=== PATIENT | female | born 1955 | race Caucasian/White ===

== ENCOUNTER 2017-11-01 02:47 | Emergency (ER) | payer OTHER ==
[~2017-11-01] VITALS: Ht 157.5 cm; Wt 59.0 kg
[~2017-11-01 02:47] MED LIST: CYMBALTA 30 MG30 MG PO; LEVSIN0.125 MG PO; REGLAN10 MG PO; ZOFRAN 4 MG TABL4 MG PO
--- NOTE | 2017-11-01 03:11 | ED GI/GU/ABDOMINAL COMPLAINT ---
History of Present Illness General Chief Complaint: Nausea, Vomiting, Diarrhea Stated Complaint: "N/V" Source: patient, family, old records Exam Limitations: no limitations Vital Signs & Intake/Output Vital Signs & Intake/Output Vital Signs Date Time Temp Pulse Resp B/P B/P Pulse O2 O2 Flow FiO2 Mean Ox Delivery Rate 11/01 0330 98.4 71 18 161/95 11/01 0327 98 Room Air 11/01 0306 98.4 71 18 161/95 97 Room Air Allergies Coded Allergies: No Known Allergies (11/01/17) Reconcile Medications Duloxetine Hydrochloride (Cymbalta) 30 MG CAP 1 CAP PO BID MENTAL HEALTH ( Reported) Hyoscyamine Sulfate (Levsin) 0.125 MG TAB 1-2 TAB PO Q6P PRN ABDOMINAL PAIN Ondansetron (Zofran 4 MG Tablet) 4 MG TAB 1 TAB PO Q8 severe nausea Triage Note: TRIAGE: PATIENT TO ER FROM HOME REPORTING +N/V, HX OF SAME "HERE IN THE PAST FOR THE SAME AND WAS ADMITTED FOR IT AND HAD A TON OF TESTING BUT WE DON'T KNOW THE CAUSE. SEE'S GI MD FOR IT TOO." PER PATIENT "EXTREMELY DEHYDRATED AND ALSO RAN OUT OF MY ANTIDEPRESSANT." PER PATIENT'S SPOUSE, "HER GI IS DR. CASTILLO AND HE SUGGESTED THAT THE NEXT TIME THIS HAPPENS SHE HAVE XRAYS TO SEE IF IT'S A BLOCKAGE." Triage Nurses Notes Reviewed? yes ? N Is pt currently ? No HPI: Patient presents with nausea vomiting since Tuesday. Patient has been unable to keep anything down. No diarrhea. She is also getting diffuse abdominal cramps. There is no radiation. There are no aggravating or mitigating factors. No fevers or chills. Patient has had some symptoms multiple times in the past and sees a appraiser personal property out of [place]. Patient was told by her doctor that she needs x-rays And this happens to make sure she doesn't have a blockage. Of note the patient also ran out of Suboxone on Tuesday. Patient does not have an appointment until later this week. Patient states that she had taken extra Suboxone and now ran out early. Past History Travel History Traveled to [place] past 21 day No Medical History Any Pertinent Medical History? see below for history Neurological: NONE EENT: NONE Cardiovascular: NONE Respiratory: NONE Gastrointestinal: "CHRONIC NAUSEA" Hepatic: NONE Renal: NONE Musculoskeletal: disk herniation, BACK SURGERY Psychiatric: depression Endocrine: NONE Blood Disorders: NONE Cancer(s): colon/rectal cancer ELIGIBILITY CLERK/Reproductive: NONE, BILATERAL OOPHRECTOMY History of MRSA: No History of VRE: No History of CDIFF: No Influenza Vaccine: 02/24/15 Tetanus Vaccine: 07/24/09 Surgical History Surgical History: PRIOR COLECTOMY Psychosocial History Who do you live with Spouse What is your primary language Libyan Tobacco Use: Current Daily Use Daily Tobacco Use Amount/Type: => 5 Cigarettes daily ETOH Use: denies use Illicit Drug Use: denies illicit drug use Family History Hx Contributory? No Review of Systems Review of Systems Constitutional: Reports: no symptoms. EENTM: Reports: no symptoms. Respiratory: Reports: no symptoms. Cardiovascular: Reports: no symptoms. GI: Reports: see HPI, abdominal pain, nausea, vomiting. Genitourinary: Reports: no symptoms. Musculoskeletal: Reports: no symptoms. Skin: Reports: no symptoms. Neurological/Psychological: Reports: no symptoms. Hematologic/Endocrine: Reports: no symptoms. Immunologic/Allergic: Reports: no symptoms. All Other Systems: Reviewed and Negative Physical Exam Physical Exam General Appearance: well developed/nourished, alert, awake, moderate distress Head: atraumatic, normal appearance Eyes: Bilateral: PERRL, EOMI. Ears, Nose, Throat, Mouth: hearing grossly normal, DRY MUCOSA Neck: normal inspection, supple, full range of motion Respiratory: normal breath sounds, chest non-tender, no respiratory distress, lungs clear Cardiovascular: regular rate/rhythm, normal peripheral pulses Gastrointestinal: normal bowel sounds, soft, non-tender, no organomegaly Back: normal inspection, normal range of motion Extremities: normal range of motion Neurologic/Psych: no motor/sensory deficits, awake, alert, oriented x 3, normal gait Skin: intact, normal color, warm/dry Core Measures ACS in differential dx? No Sepsis Present: No Sepsis Focused Exam Completed? No Progress Differential Diagnosis: appendicitis, biliary colic, bowel obstruction, cholecystitis, ischemic bowel, inflamm bowel dis, SBO Plan of Care: Orders Procedure Date/time Status URINALYSIS 11/01 310 Active TROPONIN LEVEL 11/01 310 Complete COMPREHENSIVE METABOLIC PANEL 11/01 310 Complete CBC WITHOUT DIFFERENTIAL 11/01 310 Complete EKG 11/01 310 Active Laboratory Tests 11/01/17 0400: Anion Gap 14, Estimated GFR > 60, BUN/Creatinine Ratio 40.0 H, Glucose 143 H, Calcium 9.9, Total Bilirubin 0.7, AST 20, ALT 29, Alkaline Phosphatase 68, Troponin I < 0.01, Total Protein 7.0, Albumin 4.4, Globulin 2.6, Albumin/ Globulin Ratio 1.7 11/01/17 0325: CBC w Diff MAN DIFF ORDERED, RBC 4.97, MCV 90.0, MCH 30.7, MCHC 34.0, RDW 14.9 H, MPV 9.5, Gran % 89.0 H, Lymphocytes % 8.5 L, Monocytes % 2.5, Eosinophils % 0, Basophils % 0, Absolute Granulocytes 8.5 H, Segmented Neutrophils 88 H, Absolute Lymphocytes 0.8 L, Lymphocytes 9 L, Monocytes 2, Absolute Monocytes 0.2, Absolute Eosinophils 0, Basophils 1, Absolute Basophils 0, Platelet Estimate ADEQUATE, Polychromasia 1+, Poikilocytosis 1+, Ovalocytes 1+, Fld Total RBCs Counted 100 Diagnostic Imaging: Viewed by Me: CT Scan. Discussed w/RAD: CT Scan. Radiology Impression: PATIENT: AKOSUA GALVAN PRESENT AGE: 62 PATIENT ACCOUNT NO: [id number] : 54 LOCATION: [facility] ORDERING PHYSICIAN: Mekhi Pace MD SERVICE DATE: 11/01/17 EXAM TYPE: CAT - CT ABD & PELVIS W IV CONTRAST EXAMINATION: CT ABDOMEN AND PELVIS WITH CONTRAST CLINICAL INFORMATION: Nausea and vomiting COMPARISON: CT 03/06/2015 TECHNIQUE: Multidetector volumetric imaging was performed of the abdomen and pelvis following IV administration of 95 mL of Optiray 320 intravenous contrast. Sagittal and coronal reformatted images were obtained on the technologist's workstation. DLP: 296 mGy-cm FINDINGS: LUNG BASES: Minimal bibasilar atelectasis. The visualized cardiac structures are unremarkable. LIVER, GALLBLADDER, AND BILIARY TREE: The liver is normal in size, shape, and attenuation. No focal hepatic lesion or biliary ductal dilatation is present. The gallbladder is unremarkable with no evidence of radiopaque gallstones, gallbladder wall thickening, or obvious pericholecystic inflammatory changes. PANCREAS: Unremarkable. SPLEEN: Unremarkable. ADRENAL GLANDS: Unremarkable. KIDNEYS AND URETERS: The kidneys are normal in size, shape, and attenuation. No hydronephrosis, hydroureter, or calculi seen. No perinephric stranding. 1 cm left lower pole renal cyst. BLADDER: Unremarkable. GASTROINTESTINAL TRACT: The stomach is unremarkable. The small bowel is normal in caliber. No obstruction. No colonic wall thickening or inflammatory change. There is colonic diverticulosis without diverticulitis. No free air or free fluid. ABDOMINAL WALL : No significant hernia is appreciated. LYMPH NODES: Normal. VASCULAR: Unremarkable. PELVIC VISCERA: Unremarkable. OSSEOUS STRUCTURES: No acute or suspicious osseous abnormality. Fusion hardware from L3 to L5. Vacuum disc phenomenon at L5-S1. IMPRESSION: No acute findings of the abdomen or pelvis. No obstruction. Colonic diverticulosis without diverticulitis. No inflammatory changes. DICTATED BY: Carlin Packer MD DATE/TIME DICTATED:11/01/17525 WEBMASTER:COURTNEY DATE/TIME TRANSCRIBED:11/01/17525 CONFIDENTIAL, DO NOT COPY WITHOUT APPROPRIATE AUTHORIZATION. <Electronically signed in Other Vendor System> SIGNED BY: Carlin Packer MD 11/01/1732 Initial ED EKG: NSR, no ST T wave changes Comments: Patient and her have been updated on the lateral CAT scan results. Patient is stable for discharge at this time and will follow-up with her appraiser personal property. Departure Departure Disposition: HOME OR SELF CARE Condition: Stable Clinical Impression Primary Impression: Vomiting Secondary Impressions: Opiate withdrawal Referrals: Tiago SALMON,Adam Chadwick (PCP/Family) Additional Instructions: Follow-up with her appraiser personal property. Take Reglan if needed for the nausea. Take clonidine as needed for withdrawal. Return if symptoms worsen or for any concerns. Departure Forms: Customer Survey General Discharge Information Prescriptions: Current Visit Scripts Metoclopramide HCl (Reglan) 1 TAB PO 4 TIMES/DAY PRN NAUSEA #20 TAB 30 minutes before meals and bedtime PLEASE GIVE THE ODT Clonidine HCl 1 TAB PO Q6P PRN WITHDRAWAL #16 TAB
[2017-11-01 03:36] LABS: ABSOLUTE BASOPHIL COUNT 0 /CUMM (0.0-0.2); ABSOLUTE EOSINOPHIL COUNT 0 /CUMM (0.0-0.7); ABSOLUTE GRANULOCYTE CT 8.5 /CUMM (1.4-6.5); ABSOLUTE LYMPH COUNT 0.8 /CUMM (1.2-3.4); ABSOLUTE MONOCYTE COUNT 0.2 /CUMM (0.10-0.60); BASOPHIL % 0 % (0.0-2.0); EOSINOPHIL % 0 % (0-5); HEMATOCRIT 44.8 % (37-47); MEAN CORPUSCULAR HGB 30.7 PG (27.0-31.0); MEAN PLATELET VOLUME 9.5 FL (7.4-10.4); PLATELET COUNT 310 /CUMM (130-400); RBC DISTRIBUTION WIDTH 14.9 % (11.5-14.5); RED BLOOD CELL CT 4.97 /CUMM (4.20-5.40); WHITE BLOOD CELL COUNT 9.6 /CUMM (4.8-10.8)
--- NOTE | 2017-11-01 05:32 | CT SCAN REPORT ---
EXAMINATION: CT ABDOMEN AND PELVIS WITH CONTRAST CLINICAL INFORMATION: Nausea and vomiting COMPARISON: CT 03/06/2015 TECHNIQUE: Multidetector volumetric imaging was performed of the abdomen and pelvis following IV administration of 95 mL of Optiray 320 intravenous contrast. Sagittal and coronal reformatted images were obtained on the technologist's workstation. DLP: 296 mGy-cm FINDINGS: LUNG BASES: Minimal bibasilar atelectasis. The visualized cardiac structures are unremarkable. LIVER, GALLBLADDER, AND BILIARY TREE: The liver is normal in size, shape, and attenuation. No focal hepatic lesion or biliary ductal dilatation is present. The gallbladder is unremarkable with no evidence of radiopaque gallstones, gallbladder wall thickening, or obvious pericholecystic inflammatory changes. PANCREAS: Unremarkable. SPLEEN: Unremarkable. ADRENAL GLANDS: Unremarkable. KIDNEYS AND URETERS: The kidneys are normal in size, shape, and attenuation. No hydronephrosis, hydroureter, or calculi seen. No perinephric stranding. 1 cm left lower pole renal cyst. BLADDER: Unremarkable. GASTROINTESTINAL TRACT: The stomach is unremarkable. The small bowel is normal in caliber. No obstruction. No colonic wall thickening or inflammatory change. There is colonic diverticulosis without diverticulitis. No free air or free fluid. ABDOMINAL WALL: No significant hernia is appreciated. LYMPH NODES: Normal. VASCULAR: Unremarkable. PELVIC VISCERA: Unremarkable. OSSEOUS STRUCTURES: No acute or suspicious osseous abnormality. Fusion hardware from L3 to L5. Vacuum disc phenomenon at L5-S1. IMPRESSION: No acute findings of the abdomen or pelvis. No obstruction. Colonic diverticulosis without diverticulitis. No inflammatory changes.
[2017-11-01] MEDS ORDERED: REGLAN10 M1 PO (05:47)
[2017-11-01] MEDS ORDERED: CLONIDINE HCL0.1 MG PO (05:47)
[2017-11-01 06:27] VITALS: BP 152/76
== END 2017-11-01 06:28 ==
LOC: ERH 02:47
PROVIDERS: Emergency Medicine
DX: F11.23 Opioid dependence with withdrawal (principal); R11.2 Nausea with vomiting, unspecified
CPT/HCPCS: 74177; 93005; 93010; 96374; J2405